=== PATIENT | female | born 1975 | race Native Hawaiian/Other Pacific Islander ===

== ENCOUNTER 2016-06-22 06:46 | Day surgery (SDC) | payer OTHER ==
[2016-06-20 14:47] VITALS: BMI 16.9
[2016-06-22 07:36] LABS: MEAN CELL VOLUME 98.8 fl (81.0-99.0); MEAN CORPUSCULAR HEMOGLOBIN 33.3 pg (27.0-31.0); MEAN CORPUSCULAR HGB CONC 33.7 g/dL (33.0-37.0); RED CELL DISTRIBUTION WIDTH 13.4 % (11.5-14.5); WHITE BLOOD COUNT 4.4 K/uL (4.8-10.8)
--- NOTE | 2016-06-22 08:27 | CP.SDSHP ---
Same Day Surgery H & P - History Proposed Procedure: Suction D/C Pre-Op Diagnosis: missed - Previous Medical/Surgical History Pain: 2.Mild Pain Previous Surgical History: C/s x1 - Allergies Allergies: Allergies No Known Allergies Allergy (Verified 02/09/15 12:40) - Physical Exam Vital Signs: Vital Signs 06/22/16 08:02 Temperature 98.4 F Pulse Rate 74 Respiratory 18 Rate Blood Pressure 87/62 L O2 Sat by Pulse 100 Oximetry Mental Status: Alert & Oriented x3 Neuro: WNL Heart: WNL Lungs: WNL GI: WNL - {Optional Preform as Required} Breast: WNL Abdomen: WNL Rectal: WNL Integument: WNL DAMASCENER: WNL : WNL Ortho: WNL Other Pertinent Findings: falling levels of SBS and serial sonos showing no FCA - Impression Impression: missed ab. Pt. Evaluated Today:Candidate for Anesthesia & Procedure: Yes - Date & Time Date: 06/22/16 Time: 08:31 Short Stay Discharge - Short Stay Discharge Admitting Diagnosis/Reason for Visit: MISSED AB Disposition: HOME/ ROUTINE Referrals: FAMILY PROVIDER,NO [Primary Care Provider] -
[2016-06-22] MEDS ORDERED: Lactated Ringer's 1,000 ML IV ONE (08:30)
[2016-06-22] MEDS ORDERED: Doxycycline 100 mg Inj ONE (09:47)
[2016-06-22] MEDS ORDERED: Midazolam 2 MG/2 ML VIAL ONE (09:56)
[2016-06-22] MEDS ORDERED: Propofol 10 mg/ml Inj (20 ML) ONE (09:56)
[2016-06-22] MEDS: Oxytocin 10 Units/ml Inj IM ONE ×2 (10:24→12:20)
[2016-06-22] MEDS ORDERED: HYDROmorphone 0.5 mg/0.5 ml ISec IVP PRN (10:35)
[2016-06-22] MEDS ORDERED: Oxycodone/Acetaminophen 5/325 mg Tab PO PRN (10:47)
[2016-06-22 16:21] VITALS: TEMP 98.5
[2016-06-22 18:35] VITALS: BP 90/59; PULSE 72; RESP 58; O2SAT 100
--- NOTE | 2016-06-23 10:11 | OP ---
PROCEDURE DATE: 06/22/2016 PREOPERATIVE DIAGNOSIS: Missed . POSTOPERATIVE DIAGNOSIS: Missed . PROCEDURE PERFORMED: Suction, dilatation and curettage. SURGEON: Dr. Dang. ANESTHESIA USED: General per Dr. Lackey. ESTIMATED BLOOD LOSS: 75 mL. DRAINS USED: None. REPLACEMENTS USED: None. FINDINGS: 1. Cervix appears soft, long, posterior mobile, no gross lesion to visualization. 2. Uterus anteverted and mobile, about 10 weeks' size. 3. No adnexal masses to palpation bilaterally. 4. Suction, dilatation and curettage performed using a #8 curved plastic cannula without any complic ations. PROCEDURE: The patient was taken to the operating room and placed on the operating table in a supine position. Following induction of general anesthesia, the patient was then replaced in a dorsal lith otomy position. Perineal and genital areas were draped and prepped in the usual sterile manner. Glynn rile catheter was then placed into the bladder and clear fluid was then evacuated from the bladder. The patient was then examined under anesthesia with the above findings. Heavy weighted speculum was then placed in the posterior wall of vagina exposing the cervix. The anterior lip of the cervix was then grasped using a single-tooth tenaculum. The endocervical canal was then dilated using Hanks dil ators in an increasing size manner. At this time, a #8 curved plastic cannula was then introduced in to the endometrial cavity and the endometrial cavity was then curetted using suction curettage, moder ate amount of tissue was then obtained and sent to pathology for proper pathological evaluation. At this time, the uterus was then massaged and the uterine cavity was then gingerly curetted using sharp curettage. Minimal amount of tissue obtained and again sent to pathology for proper pathological ev aluation. The uterus contracted well. Single toothed tenaculum was then removed. Minimal amount of oozing noted to be present and at this time, the patient tolerated the procedure well. There were n o complications. She was transferred to the recovery room in satisfactory condition. Instrument and sponge count were correct x 3. Javid Dang MD cc: 71 TT: 06/23/2016 10:11:05 jn
== END 2016-06-22 19:00 | disposition home or self-care (01) ==
LOC: H.OPSURG 06:46
PROVIDERS: ATTEND Specialist
DX: O02.1 Missed abortion (principal)
CPT/HCPCS: 36415; 59820; 85027; 86850; 86900; 88305; J2001; J2250; J2590; J2704; J3010; J7030; J7120